=== PATIENT | male | born 1945 | race Caucasian/White ===

== ENCOUNTER 2018-02-18 10:59 | Emergency (ER) | payer OTHER ==
[~2018-02-18] VITALS: Ht 175.3 cm; Wt 54.4 kg
[~2018-02-18 10:59] MED LIST: ASPI81CT33 PO; CLON0.5T1 PO; METH10TA PO; METO25TA PO; ORE25 PO; SIMV40TA1 PO; TERA1CAP PO; TRAZ-289 PO; VAS5 PO; VENL75TA17 PO
--- NOTE | 2018-02-18 11:01 | NUR ---
Patient transferred to bed 11 via wheelchair by vin, accompanied by family. RN evaluating patient at bedside.
[2018-02-18 11:10] VITALS: BP 116/60
--- NOTE | 2018-02-18 11:12 | NUR ---
BIB C/O SOB ON & OFF X 1WEEK. HX OF COPD, BY PASS 17 YRS AGO, EMPHYSEMA, CERVICLE FUSION 7 YEARS AGO.PT STAETED HIS NECK PAIN 7/10 AT THIS TIME. DENIES N/V/D; SKIN IS PINK/WARM/DRY; AAOX4 WITH EVEN AND STEADY GAIT; LUNGS CLEAR BL. PT DENIES ANY FEVER, CP, SOB, OR COUGH AT THIS TIME; PATIENT STATES PAIN OF 7/10 AT THIS TIME. PATIENT POSITIONED FOR COMFORT; HOB ELEVATED; BEDRAILS UP X2; BED DOWN. ER MD MADE AWARE OF PT STATUS.
--- NOTE | 2018-02-18 11:24 | NUR ---
Dr. Hill evaluating patient at bedside.
[2018-02-18] MEDS ORDERED: ALBUTEROL 0.083% 2.5 MG/3 ML NEBU INH ONE (11:25)
[2018-02-18] MEDS ORDERED: ALBUTEROL SULFATE/IPRATROPIU 3 ML SOL IH ONE (11:25)
[2018-02-18] MEDS ORDERED: predniSONE 20 MG TAB PO ONE (11:25)
--- NOTE | 2018-02-18 11:32 | NUR ---
RT at bedside for breathing intervention.
--- NOTE | 2018-02-18 11:42 | NUR ---
NEW B/P READING OF , PT. IS AAOX4, NO COMPLAINTS OF DIZZINESS. DR. GUERRA NOTIFIED. NO OTHER ORDERS AT THIS TIME. WILL CONTINUE TO MONITOR.
--- NOTE | 2018-02-18 11:51 | NUR ---
Pt tolerated breathing treatment well. Family at bedside.
[2018-02-18 12:03] VITALS: BP 86/47
--- NOTE | 2018-02-18 12:03 | NUR ---
Patient discharged with v/s stable. Written and verbal after care instructions given and explained. Patient alert, oriented and verbalized understanding of instructions. Ambulatory with steady gait. All questions addressed prior to discharge. ID band removed. Patient advised to follow up with PMD. Rx of PREDNISONE AND ALBUTEROL given. Patient educated on indication of medication including possible reaction and side effects. Opportunity to ask questions provided and answered.
== END 2018-02-18 12:03 | disposition home or self-care (01) ==
LOC: MED 10:59
DX: J44.1 Chronic obstructive pulmonary disease with (acute) exacerbation (principal); F17.210 Nicotine dependence, cigarettes, uncomplicated; Z95.1 Presence of aortocoronary bypass graft; Z79.899 Other long term (current) drug therapy
CPT/HCPCS: 93005; 94640; 99283; J7512; J7613; J7620

== ENCOUNTER 2019-08-17 21:42 | Emergency (ER) | payer OTHER ==
[~2019-08-17] VITALS: Ht 175.3 cm; Wt 59.0 kg
[~2019-08-17 21:42] MED LIST changes: -TRAZ-289 PO; +TRAZ100T99 PO
[2019-08-17 21:51] VITALS: BP 163/78
--- NOTE | 2019-08-17 22:34 | NUR ---
PT TAKEN TO X-RAY
--- NOTE | 2019-08-17 22:56 | NUR ---
DR. CABALLERO AT BEDSIDE EVALUATING PATIENT.
[2019-08-17] MEDS ORDERED: ALBUTEROL 0.083% 2.5 MG/3 ML NEBU INH ONE (23:10)
--- NOTE | 2019-08-17 23:37 | NUR ---
PT SEEN BY RT. HHN TX GIVEN ORDERED. PRE TX BREATH SOUNDS DIMINISHED. POST TX BREATH SOUNDS CLEAR/ DIMINISHED WITH SUBJECTIVE IMPROVEMENT. NO ADVERSE REACTION.
[2019-08-17 23:45] VITALS: BP 162/77
== END 2019-08-17 23:44 | disposition home or self-care (01) ==
LOC: MED 21:42
DX: J44.1 Chronic obstructive pulmonary disease with (acute) exacerbation (principal); F17.210 Nicotine dependence, cigarettes, uncomplicated; Z98.890 Other specified postprocedural states; Z79.82 Long term (current) use of aspirin; Z79.899 Other long term (current) drug therapy
CPT/HCPCS: 71045; 94640; 99283; J7613

== ENCOUNTER 2023-06-23 20:52 | Inpatient (IN) | payer OTHER, MEDICAID ==
[~2023-06-23] VITALS: Ht 170.2 cm; Wt 76.7 kg
[~2023-06-23 20:52] MED LIST changes: +ENAL5TAB48 PO; +SIMV-370 PO; -SIMV40TA1 PO; +TRAZ-471 PO; -TRAZ100T99 PO; -VAS5 PO
[2023-06-23] MEDS ORDERED: cefTRIAXone 1,000 MG in DEXT 5% MINI-BAG PLUS 50 ML IV ONE (20:55)
[2023-06-23 20:57] VITALS: BP 121/72; PULSE 90; RESP 20; TEMP 98.1; O2SAT 90
[2023-06-23] MEDS ORDERED: cefTRIAXone 1,000 MG VIAL ONE (21:11)
[2023-06-23] MEDS: NACL 0.9% 1,000 ML IV SCH (21:20)
[2023-06-23 21:46] LABS: BASOPHILS % (AUTO) 0.8 % (0.0-2.0); EOSINOPHILS # (AUTO) 0.1 K/uL (0-0.4); EOSINOPHILS % (AUTO) 1.3 % (0.0-4.0); HEMATOCRIT 36.2 % (36-52); HEMOGLOBIN 12.1 g/dL (12.0-18.0); LYMPHOCYTES # (AUTO) 1.1 K/uL (2.0-11.5); MEAN CORPUSCULAR HEMOGLOBIN 31 pg (27-31); MEAN CORPUSCULAR HGB CONC 34 g/dL (33-37); MEAN CORPUSCULAR VOLUME 92.1 fL (80-94); MONOCYTES # (AUTO) 0.5 K/uL (0.8-1.0); MONOCYTES % (AUTO) 8.7 % (1.7-9.3); NEUTROPHILS # (AUTO) 4.3 K/uL (1.8-7.7); NEUTROPHILS % (AUTO) 71.2 % (42.2-75.2); PLATELET COUNT (AUTO) 162 K/uL (140-450); RED BLOOD CELL COUNT(AUTO) 3.93 MIL/uL (4.20-6.10); RED CELL DISTRIBUTION WIDTH 13.4 % (11.6-13.7); WHITE BLOOD COUNT (AUTO) 6.1 K/uL (4.8-10.8)
[2023-06-23 21:54] LABS: APPEARANCE,URINE CLEAR (CLEAR); BILIRUBIN,URINE NEGATIVE (NEGATIVE); BLOOD, URINE NEGATIVE (NEGATIVE); COLOR,URINE YELLOW (YELLOW); LEUKOCYTE ESTERASE ,URINE NEGATIVE (NEGATIVE); NITRITE, URINE NEGATIVE (NEGATIVE); PROTEIN,URINE NEGATIVE (NEGATIVE); UGLUCOSE NEGATIVE (NEGATIVE)
[2023-06-23 21:58] LABS: FLU A ANTIGEN negative (NEGATIVE); FLU B ANTIGEN NEGATIVE (NEGATIVE)
[2023-06-23 22:03] LABS: ALANINE AMINOTRANSFERASE 15 U/L (12-78); ALBUMIN 3.9 g/dL (3.4-5.0); ALKALINE PHOSPHATASE 98 U/L (50-136); ANION GAP 14.3 (8-16); ASPARTATE AMINOTRANSFERASE 18 U/L (15-37); CALCIUM 8.8 mg/dL (8.5-10.1); CARBON DIOXIDE 24.7 mmol/L (21-32); CHLORIDE 103 mmol/L (98-107); CREATININE 1.5 mg/dL (0.6-1.3); GLUCOSE 127 mg/dL (74-106); SODIUM SERUM 139 mmol/L (136-145); TOTAL BILIRUBIN 0.6 mg/dL (0.0-1.0); TOTAL PROTEIN, SERUM 7.2 g/dL (6.4-8.2); UREA NITROGEN, BLOOD 11 mg/dL (7-18)
[2023-06-23 22:08] LABS: LACTIC ACID 1.4 mmol/L (0.4-2.0)
[2023-06-23] MEDS ORDERED: ESCI20TA PO (22:29)
[2023-06-23] MEDS ORDERED: METH-1550 PO (22:29)
[2023-06-23] MEDS ORDERED: QUET300T1 PO (22:29)
[2023-06-23] MEDS ORDERED: BUS5 PO (22:29)
[2023-06-23] MEDS ORDERED: LORA-476 PO (22:29)
[2023-06-23] MEDS ORDERED: MEMA10TA PO (22:44)
[2023-06-23] MEDS ORDERED: ZOLPIDEM 10 MG TAB PO PRN (22:55)
[2023-06-23] MEDS ORDERED: ACETAMINOPHEN 325 MG TAB PO PRN (22:55)
[2023-06-23] MEDS ORDERED: POTASSIUM CHLORIDE 10 MEQ TABER PO PRN (22:55)
[2023-06-23] MEDS ORDERED: clonazePAM 0.5 MG TAB PO SCH (22:55)
[2023-06-23] MEDS ORDERED: MAG SULF 2000 MG/WATER PREMIX 50 ML IV PRN (22:55)
[2023-06-23] MEDS ORDERED: MORPHINE SULFATE 2 MG/ML SYR IVP PRN (22:55)
[2023-06-23] MEDS ORDERED: DOCUSATE SODIUM 100 MG GELCAP PO PRN (22:55)
[2023-06-23 23:36] VITALS: BP 144/79; PULSE 19; PULSE 79; RESP 18; RESP 20; TEMP 98.2; O2SAT 99
[2023-06-23] MEDS ORDERED: KCL 20 MEQ IN 100 mL PREMIX 200 ML IV STA (23:54)
[2023-06-23 23:58] VITALS: PULSE 59
[2023-06-24] MEDS ORDERED: KCL IV ONE (00:43)
[2023-06-24 03:58] VITALS: PULSE 61
[2023-06-24 04:00] VITALS: BP 133/85; PULSE 81; RESP 20; TEMP 98; O2SAT 99
[2023-06-24 05:02] LABS: BASOPHILS # (AUTO) 0.1 K/uL (0.00-0.22); BASOPHILS % (AUTO) 0.7 % (0.0-2.0); EOSINOPHILS # (AUTO) 0.1 K/uL (0-0.4); EOSINOPHILS % (AUTO) 1.8 % (0.0-4.0); HEMATOCRIT 36.2 % (36-52); HEMOGLOBIN 12.2 g/dL (12.0-18.0); LYMPHOCYTES # (AUTO) 1.8 K/uL (2.0-11.5); LYMPHOCYTES % (AUTO) 24.5 % (20.5-51.1); MEAN CORPUSCULAR HEMOGLOBIN 31 pg (27-31); MEAN CORPUSCULAR HGB CONC 34 g/dL (33-37); MONOCYTES # (AUTO) 0.8 K/uL (0.8-1.0); MONOCYTES % (AUTO) 10.8 % (1.7-9.3); NEUTROPHILS # (AUTO) 4.6 K/uL (1.8-7.7); NEUTROPHILS % (AUTO) 62.2 % (42.2-75.2); PLATELET COUNT (AUTO) 154 K/uL (140-450); RED BLOOD CELL COUNT(AUTO) 3.94 MIL/uL (4.20-6.10); RED CELL DISTRIBUTION WIDTH 13.4 % (11.6-13.7); WHITE BLOOD COUNT (AUTO) 7.4 K/uL (4.8-10.8)
[2023-06-24 05:19] LABS: CALCIUM 8.7 mg/dL (8.5-10.1); CARBON DIOXIDE 28.2 mmol/L (21-32); CHLORIDE 108 mmol/L (98-107); CREATININE 1.3 mg/dL (0.6-1.3); GLUCOSE 89 mg/dL (74-106); POTASSIUM 4.2 mmol/L (3.5-5.1); SODIUM SERUM 141 mmol/L (136-145); UREA NITROGEN, BLOOD 9 mg/dL (7-18)
[2023-06-24 08:00] VITALS: BP 147/69; PULSE 73; PULSE 89; RESP 17; TEMP 98.9; O2SAT 95
[2023-06-24] MEDS ORDERED: MEMANTINE 10 MG TAB PO SCH (09:00)
[2023-06-24] MEDS ORDERED: QUEtiapine FUMARATE 100 MG TAB PO SCH (09:00)
[2023-06-24] MEDS ORDERED: METHADONE 10 MG TAB PO SCH (09:00)
[2023-06-24] MEDS: ENALAPRIL 5 MG TAB PO SCH (09:53)
[2023-06-24] MEDS: SIMVASTATIN 40 MG TAB PO SCH (09:56)
[2023-06-24] MEDS: hydroCHLOROthiazide 25 MG TAB PO SCH (09:56)
[2023-06-24] MEDS: METOPROLOL 25 MG TAB PO SCH ×2 (09:56→21:01)
[2023-06-24] MEDS: ESCITALOPRAM 20 MG TAB PO SCH (09:57)
[2023-06-24] MEDS: MEMANTINE 10 MG TAB PO SCH ×2 (10:00→21:01)
[2023-06-24] MEDS: METHADONE 10 MG TAB PO SCH ×2 (10:00→21:01)
[2023-06-24] MEDS: LORazepam 2 MG/ML VIAL IVP PRN ×2 (10:53→16:37)
[2023-06-24 12:00] VITALS: BP 130/89; PULSE 118; PULSE 74; RESP 19; TEMP 98.6; O2SAT 94
[2023-06-24 16:00] VITALS: BP_SYST 133; BP_SYST 136; BP_DIAS 76; BP_DIAS 85; PULSE 80; PULSE 81; PULSE 86; RESP 20; TEMP 98; TEMP 99.9; O2SAT 99
[2023-06-24] MEDS ORDERED: HALOPERIDOL IM 5 MG/ML VIAL IM PRN (18:25)
[2023-06-24 20:00] VITALS: BP 148/95; PULSE 91; PULSE 93; RESP 16; TEMP 98.1; O2SAT 100
[2023-06-24] MEDS: QUEtiapine FUMARATE 100 MG TAB PO SCH (21:00)
[2023-06-24] MEDS ORDERED: CRUSHER, PILL MC ONE (21:04)
[2023-06-25] VITALS (12 sets, daily range): BP systolic 57–157; BP diastolic 33–81; PULSE 50–98; RESP 15–20; TEMP 97.1–98.7; O2SAT 95–99
[2023-06-25 06:51] LABS: BASOPHILS # (AUTO) 0.1 K/uL (0.00-0.22); EOSINOPHILS # (AUTO) 0.2 K/uL (0-0.4); EOSINOPHILS % (AUTO) 2.8 % (0.0-4.0); HEMATOCRIT 37.1 % (36-52); HEMOGLOBIN 12.6 g/dL (12.0-18.0); LYMPHOCYTES # (AUTO) 1.8 K/uL (2.0-11.5); MEAN CORPUSCULAR HEMOGLOBIN 31 pg (27-31); MEAN CORPUSCULAR HGB CONC 34 g/dL (33-37); MEAN CORPUSCULAR VOLUME 92.7 fL (80-94); MONOCYTES # (AUTO) 0.7 K/uL (0.8-1.0); MONOCYTES % (AUTO) 11.3 % (1.7-9.3); NEUTROPHILS # (AUTO) 3.4 K/uL (1.8-7.7); NEUTROPHILS % (AUTO) 54.9 % (42.2-75.2); PLATELET COUNT (AUTO) 169 K/uL (140-450); RED CELL DISTRIBUTION WIDTH 13.8 % (11.6-13.7); WHITE BLOOD COUNT (AUTO) 6.2 K/uL (4.8-10.8)
[2023-06-25 08:03] LABS: ANION GAP 11.2 (8-16); CARBON DIOXIDE 26.1 mmol/L (21-32); CHLORIDE 105 mmol/L (98-107); CREATININE 1.2 mg/dL (0.6-1.3); GLUCOSE 74 mg/dL (74-106); POTASSIUM 3.3 mmol/L (3.5-5.1); SODIUM SERUM 139 mmol/L (136-145); UREA NITROGEN, BLOOD 8 mg/dL (7-18)
[2023-06-25] MEDS ORDERED: POTASSIUM CHLORIDE 20% 40 MEQ/15 ML UDC PO PRN (08:25)
[2023-06-25] MEDS: QUEtiapine FUMARATE 100 MG TAB PO SCH (08:50)
[2023-06-25] MEDS: ENALAPRIL 5 MG TAB PO SCH (08:51)
[2023-06-25] MEDS: hydroCHLOROthiazide 25 MG TAB PO SCH (08:53)
[2023-06-25] MEDS: MEMANTINE 10 MG TAB PO SCH (08:54)
[2023-06-25] MEDS: METHADONE 10 MG TAB PO SCH (08:56)
[2023-06-25] MEDS: SIMVASTATIN 40 MG TAB PO SCH (08:57)
[2023-06-25] MEDS: METOPROLOL 25 MG TAB PO SCH (08:58)
[2023-06-25] MEDS: ESCITALOPRAM 20 MG TAB PO SCH (09:00)
[2023-06-25] MEDS ORDERED: NACL 0.9% 1,000 ML IV SCH (12:05)
[2023-06-25] MEDS ORDERED: NACL 0.9% 500 ML IV SCH (12:05)
[2023-06-25] MEDS: NACL 0.9% 1,000 ML IV SCH ×3 (12:08→18:04)
[2023-06-25] MEDS ORDERED: NACL 0.9% 1,000 ML IV ONE (17:15)
[2023-06-26] VITALS (8 sets, daily range): BP systolic 115–152; BP diastolic 65–85; PULSE 62–97; RESP 16–18; TEMP 97.2–98.2; O2SAT 94–99
[2023-06-26] MEDS: NACL 0.9% 1,000 ML IV SCH (03:15)
[2023-06-26 05:08] LABS: BASOPHILS # (AUTO) 0.1 K/uL (0.00-0.22); BASOPHILS % (AUTO) 0.9 % (0.0-2.0); EOSINOPHILS # (AUTO) 0.1 K/uL (0-0.4); EOSINOPHILS % (AUTO) 2.2 % (0.0-4.0); HEMATOCRIT 34.3 % (36-52); HEMOGLOBIN 11.7 g/dL (12.0-18.0); LYMPHOCYTES # (AUTO) 0.9 K/uL (2.0-11.5); LYMPHOCYTES % (AUTO) 14.6 % (20.5-51.1); MEAN CORPUSCULAR HEMOGLOBIN 32 pg (27-31); MEAN CORPUSCULAR HGB CONC 34 g/dL (33-37); MONOCYTES # (AUTO) 0.5 K/uL (0.8-1.0); MONOCYTES % (AUTO) 7.8 % (1.7-9.3); NEUTROPHILS # (AUTO) 4.8 K/uL (1.8-7.7); NEUTROPHILS % (AUTO) 74.5 % (42.2-75.2); PLATELET COUNT (AUTO) 152 K/uL (140-450); RED BLOOD CELL COUNT(AUTO) 3.69 MIL/uL (4.20-6.10); RED CELL DISTRIBUTION WIDTH 13.7 % (11.6-13.7); WHITE BLOOD COUNT (AUTO) 6.5 K/uL (4.8-10.8)
[2023-06-26 05:35] LABS: ANION GAP 12.8 (8-16); CALCIUM 8.3 mg/dL (8.5-10.1); CARBON DIOXIDE 22.9 mmol/L (21-32); CHLORIDE 110 mmol/L (98-107); CREATININE 1.2 mg/dL (0.6-1.3); GLUCOSE 70 mg/dL (74-106); POTASSIUM 3.7 mmol/L (3.5-5.1); SODIUM SERUM 142 mmol/L (136-145); UREA NITROGEN, BLOOD 7 mg/dL (7-18)
[2023-06-26] MEDS: SIMVASTATIN 40 MG TAB PO SCH (08:45)
[2023-06-26] MEDS: busPIRone 5 MG TAB PO SCH ×2 (09:00→20:08)
[2023-06-26] MEDS: MEMANTINE 10 MG TAB PO SCH (09:00)
[2023-06-26] MEDS: QUEtiapine FUMARATE 100 MG TAB PO SCH ×2 (09:00→20:09)
[2023-06-26] MEDS: LORazepam 2 MG/ML VIAL IVP PRN ×3 (11:15→23:29)
[2023-06-26] MEDS: METHADONE 10 MG TAB PO SCH ×2 (11:29→20:08)
[2023-06-27] VITALS (7 sets, daily range): BP systolic 114–143; BP diastolic 70–81; PULSE 65–127; RESP 18–19; TEMP 97–98.7; O2SAT 95–99
[2023-06-27 06:39] LABS: ANION GAP 12.2 (8-16); CALCIUM 8.8 mg/dL (8.5-10.1); CARBON DIOXIDE 27.8 mmol/L (21-32); CHLORIDE 103 mmol/L (98-107); CREATININE 1.2 mg/dL (0.6-1.3); GLUCOSE 73 mg/dL (74-106); SODIUM SERUM 139 mmol/L (136-145); UREA NITROGEN, BLOOD 7 mg/dL (7-18)
[2023-06-27 07:01] LABS: BASOPHILS # (AUTO) 0.1 K/uL (0.00-0.22); BASOPHILS % (AUTO) 0.9 % (0.0-2.0); EOSINOPHILS # (AUTO) 0.2 K/uL (0-0.4); HEMATOCRIT 38.9 % (36-52); LYMPHOCYTES # (AUTO) 1.6 K/uL (2.0-11.5); LYMPHOCYTES % (AUTO) 19.8 % (20.5-51.1); MEAN CORPUSCULAR HEMOGLOBIN 31 pg (27-31); MEAN CORPUSCULAR HGB CONC 34 g/dL (33-37); MEAN CORPUSCULAR VOLUME 92.5 fL (80-94); MONOCYTES # (AUTO) 0.8 K/uL (0.8-1.0); MONOCYTES % (AUTO) 9.7 % (1.7-9.3); NEUTROPHILS # (AUTO) 5.5 K/uL (1.8-7.7); NEUTROPHILS % (AUTO) 67.6 % (42.2-75.2); PLATELET COUNT (AUTO) 171 K/uL (140-450); RED CELL DISTRIBUTION WIDTH 13.4 % (11.6-13.7); WHITE BLOOD COUNT (AUTO) 8.2 K/uL (4.8-10.8)
[2023-06-27] MEDS: MEMANTINE 10 MG TAB PO SCH (08:39)
[2023-06-27] MEDS: METHADONE 10 MG TAB PO SCH ×2 (08:39→20:54)
[2023-06-27] MEDS: busPIRone 5 MG TAB PO SCH ×2 (08:39→20:54)
[2023-06-27] MEDS: SIMVASTATIN 40 MG TAB PO SCH (08:39)
[2023-06-27] MEDS: QUEtiapine FUMARATE 100 MG TAB PO SCH ×2 (08:39→20:54)
[2023-06-27] MEDS: ENOXAPARIN 40 MG/0.4 ML SYR SUBQ SCH (08:50)
[2023-06-27] MEDS: LORazepam 2 MG/ML VIAL IVP PRN (11:22)
[2023-06-27] MEDS: LORazepam 2 MG/ML VIAL IM/IVP PRN ×2 (12:58→18:27)
[2023-06-28 04:00] VITALS: BP 144/71; PULSE 96; RESP 17; TEMP 98; O2SAT 96
[2023-06-28] MEDS: LORazepam 2 MG/ML VIAL IM/IVP PRN (04:26)
[2023-06-28] MEDS ORDERED: MORPHINE SULFATE 2 MG/ML SYR IM/IVP PRN (06:35)
[2023-06-28 07:27] VITALS: O2SAT 98
[2023-06-28 08:00] VITALS: PULSE 92; RESP 16; O2SAT 97
[2023-06-28] MEDS: busPIRone 5 MG TAB PO SCH (10:01)
[2023-06-28] MEDS: QUEtiapine FUMARATE 100 MG TAB PO SCH (10:01)
[2023-06-28] MEDS: MEMANTINE 10 MG TAB PO SCH (10:03)
[2023-06-28] MEDS: METHADONE 10 MG TAB PO SCH (10:10)
[2023-06-28] MEDS: SIMVASTATIN 40 MG TAB PO SCH (10:10)
[2023-06-28] MEDS: ENOXAPARIN 40 MG/0.4 ML SYR SUBQ SCH (10:19)
[2023-06-28 12:00] VITALS: BP 109/55; PULSE 77; RESP 16; TEMP 97.8; O2SAT 95
[2023-06-28] MEDS ORDERED: METH-1550 PO (13:24)
[2023-06-28] MEDS ORDERED: BUS5 PO (13:24)
[2023-06-28] MEDS ORDERED: QUET100T44 PO (13:24)
[2023-06-28] MEDS ORDERED: CLON0.5T PO (13:25)
== END 2023-06-28 16:35 | DRG 682 ==
LOC: MED 20:52 → MTU 22:50
PROVIDERS: ADMIT Family Medicine; ATTEND Family Medicine
DX: N17.9 Acute kidney failure, unspecified (principal); G93.41 Metabolic encephalopathy; F11.20 Opioid dependence, uncomplicated; J44.9 Chronic obstructive pulmonary disease, unspecified; F32.A Depression, unspecified; Z20.822 Contact with and (suspected) exposure to COVID-19; F03.90 Unspecified dementia, unspecified severity, without behavioral disturbance, psychotic disturbance, mood disturbance, and anxiety; Z95.1 Presence of aortocoronary bypass graft; Z79.82 Long term (current) use of aspirin; Z79.899 Other long term (current) drug therapy
CPT/HCPCS: 36415; 70450; 71045; 80048; 80053; 81003; 82140; 82948; 83605; 83735; 83880; 84484; 85025; 87040; 87081; 87086; 93005; 96365; 97163-GP; 97530; 99285; J0696; J1630; J1650; J2060; J2270; J3480